=== PATIENT | male | born 1990 | race African-American/Black ===

== ENCOUNTER 2022-05-07 14:42 | Emergency (ER) | payer OTHER ==
[2022-05-07 14:49] VITALS: BP 168/102; PULSE 113; RESP 16; TEMP 98.2; BMI 29.1
[2022-05-07 18:26] LABS: PH,URINE 6.5 (5.0-8.0); URINE APPEARANCE CLEAR; URINE BILIRUBIN NEGATIVE (NEGATIVE); URINE COLOR YELLOW; URINE GLUCOSE (UA) NEGATIVE (NEGATIVE); URINE KETONE TRACE (NEGATIVE); URINE LEUK ESTERASE NEGATIVE (NEGATIVE); URINE NITRITE NEGATIVE (NEGATIVE); URINE PROTEIN TRACE (NEGATIVE)
[2022-05-07 20:04] LABS: SYPHILIS W/ RPR CONF NON-REACTIVE (NONREACTIVE)
[2022-05-07 20:33] LABS: HIV INTERPRETATION NEGATIVE (NEGATIVE)
== END 2022-05-07 21:00 ==
LOC: JER 14:42
DX: I86.1 Scrotal varices (principal); N44.2 Benign cyst of testis
CPT/HCPCS: 36415; 76870-TC; 81003; 86780; 87086; 87389; 87491; 87591; 99284-25

== ENCOUNTER 2022-07-19 12:19 | Emergency (ER) | payer OTHER ==
[2022-07-19 13:00] VITALS: BP 180/102; PULSE 102; RESP 18; TEMP 98.1; BMI 30.2
== END 2022-07-19 15:22 | disposition home or self-care (01) ==
LOC: JERFT 12:19
DX: M79.662 Pain in left lower leg (principal)
CPT/HCPCS: 99281-25